=== PATIENT | male | born 2000 | race Two or more races ===

== ENCOUNTER 2024-11-12 23:42 | Emergency (ER) | payer OTHER ==
[~2024-11-12] VITALS: Ht 188 cm; Wt 79.4 kg
[2024-11-13 00:28] LABS: PLATELET COUNT (AUTO) 227 K/uL (150-450); RED BLOOD CELL COUNT(AUTO) 5.03 MIL/uL (4.5-6.0); RED CELL DISTRIBUTION WIDTH 14.2 % (11.5-15.0); WHITE BLOOD COUNT (AUTO) 6.1 K/uL (4.3-11.0)
[2024-11-13 00:34] LABS: CALCIUM, SERUM 8.7 mg/dL (8.5-10.1); CREATININE 1.0 mg/dL (0.6-1.3); SODIUM SERUM 140 mmol/L (136-145); UREA NITROGEN, BLOOD 10 mg/dL (7-18)
[2024-11-13 00:41] LABS: ALCOHOL, BLOOD < 3 mg/dL (0-10); ASPARTATE AMINOTRANSFERASE 40 U/L (15-37); TOTAL PROTEIN, SERUM 7.3 g/dL (6.4-8.2)
[2024-11-13 01:05] LABS: APPEARANCE,URINE CLEAR (CLEAR); BLOOD, URINE NEGATIVE Ery/uL (NEGATIVE); LEUKOCYTE ESTERASE ,URINE NEGATIVE (NEGATIVE); NITRITE, URINE NEGATIVE (NEGATIVE); UGLUCOSE NEGATIVE (NEGATIVE)
[2024-11-13 01:23] LABS: AMPHETAMINE, URINE NEGATIVE (NEGATIVE); BARBITURATE, URINE NEGATIVE (NEGATIVE); BENZODIAZEPINE, URINE NEGATIVE (NEGATIVE); COCCAINE, URINE NEGATIVE (NEGATIVE); OPIATE, URINE NEGATIVE (NEGATIVE)
[2024-11-13 01:24] LABS: CANNABINOID, URINE POSITIVE (NEGATIVE)
[2024-11-13] MEDS ORDERED: QUETIAPINE FUMARATE 100 MG TABLET ONE (02:27)
[2024-11-13] MEDS ORDERED: ARIPIPRAZOLE 2 MG TABLET ONE (02:27)
[2024-11-13] MEDS: QUETIAPINE FUMARATE 100 MG TABLET PO STA (02:30)
[2024-11-13] MEDS: ARIPIPRAZOLE 5 MG TABLET PO STA (02:30)
[2024-11-13 22:55] VITALS: BP 123/75; TEMP 98.2; O2SAT 98
== END 2024-11-13 22:55 ==
LOC: ER 23:45
DX: R45.851 Suicidal ideations (principal); F32.A Depression, unspecified; F43.10 Post-traumatic stress disorder, unspecified; F41.9 Anxiety disorder, unspecified; F20.9 Schizophrenia, unspecified; Z59.00 Homelessness unspecified; Z60.2 Problems related to living alone; Z79.899 Other long term (current) drug therapy; Z20.822 Contact with and (suspected) exposure to COVID-19
CPT/HCPCS: 36415; 80048-TC; 80076-TC; 85025-TC; 98960; G0480